=== PATIENT | female | born 1990 | race Two or more races ===

== ENCOUNTER 2020-05-06 15:55 | Emergency (ER) | payer SELFPAY ==
[~2020-05-06] VITALS: Ht 152.4 cm; Wt 109.0 kg
[2020-05-06] MEDS ORDERED: ONDANSETRON PF 4 MG/2 ML VIAL. IVP ONE ×2 (16:30→18:45)
[2020-05-06] MEDS ORDERED: IV NORMAL SALINE 1000ML BAG 1,000 ML IV ONE (16:30)
[2020-05-06] MEDS ORDERED: FAMOTIDINE 20 MG/2 ML VIAL IVP ONE (16:30)
[2020-05-06 16:39] LABS: BASO # 0.1 x10^3/uL (0.0-0.2); BASO % 1 % (0-3); EOS # 0.6 x10^3/uL (0.0-0.7); EOS % 6 % (0-3); HEMATOCRIT 34.7 % (36.0-47.0); LYMPH # 2.5 x10^3/uL (1.0-4.8); LYMPH % 24 % (24-48); MEAN CORPUSCULAR HEMOGLOBIN 29 pg (25-35); MEAN CORPUSCULAR HGB CONC 35 g/dL (31-37); MEAN CORPUSCULAR VOLUME 83 fL (79-100); MONO # 1.1 x10^3/uL (0.0-1.1); MONO % 11 % (0-9); NEUT # 6.1 x10^3/uL (1.8-7.7); NEUT % 59 % (31-73); PLATELET COUNT 444 x10^3/uL (140-400); RED CELL DISTRIBUTION WIDTH 14.8 % (11.5-14.5); WHITE BLOOD COUNT 10.3 x10^3/uL (4.0-11.0)
[2020-05-06 17:08] LABS: ALBUMIN 2.9 g/dL (3.4-5.0); ALBUMIN/GLOBULIN RATIO 0.4 (1.0-1.7); CALCIUM 9.4 mg/dL (8.5-10.1); CREATININE 0.7 mg/dL (0.6-1.0); GFR 97.6; MAGNESIUM 1.6 mg/dL (1.8-2.4); TOTAL BILIRUBIN 0.4 mg/dL (0.2-1.0); TOTAL PROTEIN 9.9 g/dL (6.4-8.2)
[2020-05-06 17:12] LABS: POTASSIUM 2.8 mmol/L (3.5-5.1)
--- NOTE | 2020-05-06 17:27 | PHYS DOC ---
Past Medical History Past Medical History: No Pertinent History Past Surgical History: No Surgical History Smoking Status: Never Smoker Alcohol Use: None Drug Use: None General Adult EDM: Chief Complaint: VOMITING IN HPI: HPI: 30-year-old female presents the emergency department for vomiting and hematemesis that began 3 weeks ago. The vomiting has only gotten worse over the past 3 weeks. The patient came to emergency department today because she was given antiemetic medication which she has been taking, but the medication has not stopped her vomiting or hematemesis. The patient is 10 weeks . She has had she is G3, P2. She has not had complications of pregnancies prior to this . She has not had a SENIOR COURTROOM CLERK appointment yet this . Patient says that she began vomiting blood 3 weeks ago and small amounts, but now the quantity of blood has now increased to vomiting 10 times a day" 1 cupful of blood "every time she vomits. The patient denies any pain in her throat or any tenderness in her neck. Patient reports lightheadedness, but has not lost consciousness. Patient has not been able to eat or drink much food in the past few days because the amount of vomiting she is doing. Patient says that she has no chest pain but epigastric pain is present. She reports that the pain is mild. Patient has no other loss of sensation or numbness or tingling throughout her body. Patient denies vaginal bleeding Review of Systems: Review of Systems: Constitutional: Denies fever or chills Eyes: Denies redness or eye pain HENT: Denies nasal congestion or sore throat Respiratory: Denies cough or shortness of breath Cardiovascular: Denies chest pain or palpitations GI: Reports nausea and vomiting and epigastric pain : Denies dysuria or hematuria Musculoskeletal: Denies back pain or joint pain Integument: Denies rash or skin lesions Neurologic: Denies headache, focal weakness or sensory changes Complete systems were reviewed and found to be within normal limits, except as documented in this note. Current Medications: Current Medications Medications (Trade) Dose Ordered Sig/Dhaval Start Time Stop Time Status Last Admin Dose Admin Famotidine (Pepcid Vial) 20 mg 1X ONCE 05/06/20 16:30 05/06/20 16:32 DC 05/06/20 16:44 20 MG Ondansetron HCl (Zofran) 4 mg 1X ONCE 05/06/20 16:30 05/06/20 16:32 DC 05/06/20 16:44 4 MG Sodium Chloride 1,000 ml @ 1,000 mls/hr 1X ONCE 05/06/20 16:30 05/06/20 17:29 05/06/20 16:44 1,000 MLS/HR Allergies: Allergies: Allergies Coded Allergies Type Severity Reaction Last Updated Verified No Known Drug Allergies 05/06/20 No Physical Exam: PE: Constitutional: Well developed, well nourished, no acute distress, non-toxic appearance HENT: Normocephalic, atraumatic Eyes: PERRL, EOMI, conjunctiva normal, no discharge Neck: Normal range of motion, no tenderness, supple, no crepitus Lungs & Thorax: Bilateral breath sounds clear to auscultation, no wheezing Abdomen: Soft, slight tenderness to epigastric region of abdomen Skin: Warm, dry, no erythema, no rash Back: No tenderness, no CVA tenderness Extremities: No tenderness, ROM intact, no edema Neurologic: Alert and oriented X 3, normal motor function, normal sensory function, no focal deficits noted Psychologic: Affect normal, judgment normal Current Patient Data: Labs: Laboratory Tests Test 05/06/20 16:32 White Blood Count 10.3 x10^3/uL (4.0-11.0) Red Blood Count 4.20 x10^6/uL (3.50-5.40) Hemoglobin 12.0 g/dL (12.0-15.5) Hematocrit 34.7 % (36.0-47.0) L Mean Corpuscular Volume 83 fL (79-100) Mean Corpuscular Hemoglobin 29 pg (25-35) Mean Corpuscular Hemoglobin Concent 35 g/dL (31-37) Red Cell Distribution Width 14.8 % (11.5-14.5) H Platelet Count 444 x10^3/uL (140-400) H Neutrophils (%) (Auto) 59 % (31-73) Lymphocytes (%) (Auto) 24 % (24-48) Monocytes (%) (Auto) 11 % (0-9) H Eosinophils (%) (Auto) 6 % (0-3) H Basophils (%) (Auto) 1 % (0-3) Neutrophils # (Auto) 6.1 x10^3/uL (1.8-7.7) Lymphocytes # (Auto) 2.5 x10^3/uL (1.0-4.8) Monocytes # (Auto) 1.1 x10^3/uL (0.0-1.1) Eosinophils # (Auto) 0.6 x10^3/uL (0.0-0.7) Basophils # (Auto) 0.1 x10^3/uL (0.0-0.2) Sodium Level 131 mmol/L (136-145) L Potassium Level 2.8 mmol/L (3.5-5.1) *L Chloride Level 97 mmol/L (98-107) L Carbon Dioxide Level 16 mmol/L (21-32) L Anion Gap 18 (6-14) H Blood Urea Nitrogen 4 mg/dL (7-20) L Creatinine 0.7 mg/dL (0.6-1.0) Estimated GFR (Cockcroft-Gault) 97.6 BUN/Creatinine Ratio 6 (6-20) Glucose Level 88 mg/dL (70-99) Calcium Level 9.4 mg/dL (8.5-10.1) Magnesium Level 1.6 mg/dL (1.8-2.4) L Total Bilirubin 0.4 mg/dL (0.2-1.0) Aspartate Amino Transferase (AST) 22 U/L (15-37) Alanine Aminotransferase (ALT) 21 U/L (14-59) Alkaline Phosphatase 52 U/L (46-116) Total Protein 9.9 g/dL (6.4-8.2) H Albumin 2.9 g/dL (3.4-5.0) L Albumin/Globulin Ratio 0.4 (1.0-1.7) L Lipase 136 U/L (73-393) Laboratory Tests 05/06/20 16:32 Laboratory Tests 05/06/20 16:32 Vital Signs: Vital Signs Date Time Temp Pulse Resp B/P (MAP) Pulse Ox O2 Delivery O2 Flow Rate FiO2 05/06/20 16:21 99.8 118 18 121/84 (96) 95 Room Air 99.8 EKG: EKG: [] Radiology/Procedures: Radiology/Procedures: [] Course & Med Decision Making: Course & Med Decision Making Pertinent Labs and Imaging studies reviewed. (See chart for details) [] Dragon Disclaimer: Karishma Disclaimer: This electronic medical record was generated, in whole or in part, using a voice recognition dictation system. Departure Departure Impression: Primary Impression: Nosebleed Additional Impressions: Vomiting Qualified Codes: R11.2 - Nausea with vomiting, unspecified Qualified Codes: Z3A.10 - 10 weeks gestation of Hypomagnesemia Hypokalemia UTI (urinary tract infection) Qualified Codes: N30.00 - Acute cystitis without hematuria Disposition: HOME, SELF-CARE Condition: STABLE Referrals: NO PCP (PCP) Patient Instructions: Abdominal Pain During , [id number], Hy pokalemia-Brief, Hypomagnesemia, Nausea and Vomiting, [id number], Nose Drops, Saline, [id number], Nosebleed, [id number], Potassium Content of Foods, Urinary Tract Infection, [id number] Additional Instructions: Please follow closely with your ENT and SENIOR COURTROOM CLERK. Use humidifier at home while sleeping. Scripts Cephalexin (KEFLEX) 500 Mg Capsule 500 MG PO TID for 7 Days, #21 CAP Prov: CORETTA POOL DO 05/06/20 Sodium Chloride (OCEAN) 104 Ml [place] 2 SPRAYS NS QID, #1 BOT Prov: CORETTA POOL DO 05/06/20 Ondansetron (ONDANSETRON ODT) 4 Mg Tab.rapdis 1 TAB PO PRN Q6-8HRS PRN for NAUSEA, #16 TAB Prov: CORETTA POOL DO 05/06/20 Justicifation of Admission Dx: Justifications for Admission: Justification of Admission Dx: N/A CORETTA POOL DO May 06, 2020 17:26
[2020-05-06 17:28] LABS: BILIRUBIN,URINE SMALL (NEG); CLARITY,URINE CLOUDY; COLOR,URINE AMBER; NITRITE,URINE NEGATIVE (NEG); PROTEIN,URINE 30 mg/dL (NEG-TRACE)
[2020-05-06 17:35] LABS: BACTERIA,URINE MANY /HPF (0-FEW); BARBITURATES NEG (NEG); BENZODIAZEPINES NEG (NEG); CANNABINOIDS NEG (NEG); COCAINE NEG (NEG); METHADONE NEG (NEG); OPIATES NEG (NEG); PHENCYCLIDINE NEG (NEG); RBC,URINE 0 /HPF (0-2); SQUAMOUS EPITHELIAL CELL,UR MANY /LPF; WBC,URINE 20-40 /HPF (0-4)
[2020-05-06 17:36] LABS: AMPHETAMINE/METHAMPHETAMINE NEG (NEG)
[2020-05-06] MEDS ORDERED: MAGNESIUM SULFATE 2GM 50 ML IV ONE (18:00)
[2020-05-06] MEDS ORDERED: POTASSIUM CHLORIDE 20 MEQ TABLET.ER. PO ONE (18:00)
--- NOTE | 2020-05-06 18:02 | RAD ---
PREG 1ST TRIMESTER History: Reason: abdominal pain in / Spl. Instructions: / History: Comparison: None. Technique: Grayscale and color Doppler imaging of the pelvis was performed using transabdominal technique. Findings: The uterus measures 9.8 x 7.5 x 5.8 cm. Intrauterine gestational sac rounded oblong appearance. Embryo identified with crown-rump length 3.87 cm. heart rate 160 bpm. Estimated gestational age by ultrasound 10 weeks 5 days. Bilateral maternal ovaries not identified due to positioning and overlying structures. No adnexal masses are seen. IMPRESSION: 1. Single intrauterine with gestational age 10 weeks 5 days and heart 168 bpm. Electronically signed by: Timothy Wang DO (05/06/2020 5:59 PM) [facility]
[2020-05-06 18:30] VITALS: BP 115/73
[2020-05-06] MEDS ORDERED: OXYMETAZOLINE 0.05% NASAL SPRAY 30ML BOTTLE. NS ONE (18:30)
[2020-05-06] MEDS ORDERED: POTASSIUM BICARB 20 MEQ EFFERVESCENT TABLET. PO ONE (18:30)
[2020-05-06] MEDS ORDERED: MAGNESIUM CHLORIDE ER 64 MG TABLET.ER PO ONE (18:45)
[2020-05-06] MEDS ORDERED: ONDA4TAB12 PO (18:45)
[2020-05-06] MEDS ORDERED: SODI104S NS (18:45)
[2020-05-06] MEDS ORDERED: CEPH-264 PO (18:50)
[2020-05-06] MEDS ORDERED: cefTRIAXone IV Push 1 GM VIAL. IVP ONE (19:00)
[2020-05-07] MEDS ORDERED: MAGNESIUM CHLORIDE ER 64 MG TABLET.ER PO SCH (09:00)
== END 2020-05-06 19:09 | disposition home or self-care (01) ==
LOC: ER 15:55
DX: O23.41 Unspecified infection of urinary tract in pregnancy, first trimester (principal); O21.9 Vomiting of pregnancy, unspecified; R10.13 Epigastric pain; R42 Dizziness and giddiness; E83.42 Hypomagnesemia; E87.6 Hypokalemia; Z3A.10 10 weeks gestation of pregnancy
CPT/HCPCS: 36415; 76801; 80053; 80307; 81001; 81025; 83690; 83735; 84702; 85025; 87086; 96361; 96374; 96375; 96376; 99284; J0696; J2405; J3490; J7030